=== PATIENT | female | born 1950 | race Caucasian/White ===

== ENCOUNTER → 2018-04-25 07:24 | Outpatient (CLI) | payer OTHER, SELFPAY ==
--- NOTE | 2018-04-25 07:30 | BI_ITS ---
MAMMOGRAPHY - BILATERAL SCREENING REASON FOR EXAM: Female, 67 years old. Routine annual screening examination. PERTINENT HISTORY: Non-contributory. TECHNIQUE: Digital bilateral breast chrissie (3D mammographic acquisition) in the CC and MLO projections. 2-D mediolateral oblique (MLO) and craniocaudad (CC) views of both breasts were obtained. CAD: Full Field Digital Mammography with Computer Added Detection was performed. COMPARISON: Comparison is made with prior study dated March 25, 2017 and April 03, 2016. FINDINGS: Breast Composition: There are scattered areas of fibroglandular density. There are no dominant masses or suspicious calcifications. No other significant abnormalities are identified. There has been no significant change since the prior study. BI/SCREENING MAMM (CAD), BILAT IMPRESSION: Stable bilateral screening mammogram. Yearly follow-up mammogram recommended. (A) ASSESSMENT CATEGORY: BIRADS Category 1: Negative. A letter regarding these results will be sent to the patient by the facility within 30 days. Approximately 10% of breast cancers are not detected by mammography. A normal mammogram should not delay biopsy of a clinically suspicious abnormality. [id number] Electronically Signed: Kush Boykin MD at 15:41 EDT Tel [phone], Service support ,
== END ==
PROVIDERS: Family Provider Family Medicine; PCP Family Medicine; Visit Provider Family Medicine
DX: Z12.31 Encounter for screening mammogram for malignant neoplasm of breast (principal)
CPT/HCPCS: 77063; 77067

== ENCOUNTER → 2019-04-26 06:53 | Outpatient (CLI) | payer OTHER, SELFPAY ==
--- NOTE | 2019-04-26 06:56 | BI_ITS ---
MAMMOGRAPHY - BILATERAL SCREENING REASON FOR EXAM: Female, 68 years old. Routine annual screening examination. PERTINENT HISTORY: Non-contributory. TECHNIQUE: Digital bilateral breast carli (3D mammographic acquisition) in the CC and MLO projections. 2-D mediolateral oblique (MLO) and craniocaudad (CC) views of both breasts were obtained. CAD: Full Field Digital Mammography with Computer Added Detection was performed. COMPARISON: Comparison is made with prior study date April 25, 2018 and March 25, 2017. FINDINGS: Breast Composition: There are scattered areas of fibroglandular density. There are no dominant masses or suspicious calcifications. No other significant abnormalities are identified. There has been no significant change since the prior study. BI/SCREEN MAMM (CAD) W/CARLI BILAT IMPRESSION: Stable bilateral screening mammogram. Yearly follow-up mammogram recommended. (A) ASSESSMENT CATEGORY: BIRADS Category 1: Negative. A letter regarding these results will be sent to the patient by the facility within 30 days. Approximately 10% of breast cancers are not detected by mammography. A normal mammogram should not delay biopsy of a clinically suspicious abnormality. [id number] Electronically Signed: Kush Boykin, at 8:54 EDT , Service support ,
== END ==
PROVIDERS: Family Provider Family Medicine; PCP Family Medicine; Referring Provider Family Medicine; Visit Provider Family Medicine
DX: Z12.31 Encounter for screening mammogram for malignant neoplasm of breast (principal)
CPT/HCPCS: 77063; 77067

== ENCOUNTER → 2019-08-22 13:17 | Outpatient (CLI) | payer OTHER, SELFPAY ==
--- NOTE | 2019-08-22 13:32 | STEWCON_ITS ---
Reason For Study: CHEST PAIN Stress Results Protocol: Stress Echocardiogram Maximum Predicted HR: 149 bpm Target HR: 127 bpm % Maximum Predicted HR: 88 % DurationHeart Rate Stage (mm:ss) (bpm) BP Comment BASELINE 60 120/80DILUTED DEFINITY 4 CC USED SYLWIA PROTOCOL- STAGE 1 3:00 97 122/68NO SX SYLWIA PROTOCOL- STAGE 2 3:00 114 128/78NO SX SYLWIA PROTOCOL- STAGE 3 3:00 131 138/78FATIGUE, NO CP RECOVERY 77 124/84 Stress Duration: 9:00 mm:ss Maximum Stress HR: 131 bpm METS: 10 Baseline Echocardiogram Findings Stress Echo Wall motion Data Resting WM Intermediate WM Stress WM Resting Wall Motion Wall Motion Stress All segments Normal. All segments Hyperkinetic. Ejection Fraction 55 %. Ejection Fraction 65 %. Stress Results Heart rate response: Appropriate Blood pressure response: Normal resting blood pressure-appropriate response Arrhythmias: None Functional capacity: Good Stopped secondary to: Fatigue. EKG Data Baseline ECG: Sinus bradycardia. Exercise ECG: No obvious ECG changes. Symptoms with Stress No complaint of chest discomfort during exercise or recovery. Interpretation Summary 1. Technically difficult study 2. Contrast injection performed 3. Negative (adequate) stress echocardiogram Ordering Physician: Jesus Rocha Referring Physician: Jesus Rocha Performed By: Glenda Schroeder, JONGCS, RVT
== END ==
PROVIDERS: PCP Family Medicine; Referring Provider Family Medicine; Visit Provider Family Medicine
DX: R07.89 Other chest pain (principal)
CPT/HCPCS: 93017; 93350; Q9957; A4216; C8928

== ENCOUNTER → 2020-08-23 09:46 | Outpatient (CLI) | payer MEDICARE, OTHER, SELFPAY ==
--- NOTE | 2020-08-23 09:48 | BI_ITS ---
MAMMOGRAPHY - BILATERAL SCREENING REASON FOR EXAM: Female, 70 years old. Routine annual screening examination. PERTINENT HISTORY: Non-contributory. TECHNIQUE: Digital bilateral breast carli (3D mammographic acquisition) in the CC and MLO projections. 2-D mediolateral oblique (MLO) and craniocaudad (CC) views of both breasts were obtained. CAD: Full Field Digital Mammography with Computer Added Detection was performed. COMPARISON: Comparison is made with prior study dated 04/26/2019 and 04/25/2018. FINDINGS: Breast Composition: There are scattered areas of fibroglandular density. There are no dominant masses or suspicious calcifications. No other significant abnormalities are identified. There has been no significant change since the prior study. BI/SCRN MAMM (CAD)W/CARLI BILAT IMPRESSION: Stable bilateral screening mammogram. Yearly follow-up mammogram recommended. (A) ASSESSMENT CATEGORY: BIRADS Category 1: Negative. A letter regarding these results will be sent to the patient by the facility within 30 days. Approximately 10% of breast cancers are not detected by mammography. A normal mammogram should not delay biopsy of a clinically suspicious abnormality. [id number] Electronically Signed: Kush Boykin MD at 11:46 EST , Service support ,
== END ==
PROVIDERS: PCP Family Medicine; Referring Provider Family Medicine; Visit Provider Family Medicine
DX: Z12.31 Encounter for screening mammogram for malignant neoplasm of breast (principal)
CPT/HCPCS: 77063; 77067

== ENCOUNTER 2020-09-05 10:51 | Outpatient (RCR) | payer MEDICARE, SELFPAY ==
[2020-09-05] MEDS: COVID-19 VACC, MRNA(PFIZER)/PF 30 MCG/0.3 ML SYRINGE IM (07:37)
[2020-09-26] MEDS: COVID-19 VACC, MRNA(PFIZER)/PF 30 MCG/0.3 ML SYRINGE IM (07:28)
== END 2020-09-05 23:59 ==
LOC: IMMUN 10:51
PROVIDERS: PCP Family Medicine; Visit Provider Family Medicine
DX: Z23 Encounter for immunization (principal)
CPT/HCPCS: 0001A; 0002A

== ENCOUNTER 2021-08-27 07:08 | Outpatient (CLI) | payer MEDICARE, OTHER, SELFPAY ==
--- NOTE | 2021-08-27 07:13 | BI_ITS ---
MAMMOGRAPHY - BILATERAL SCREENING REASON FOR EXAM: Female, 71 years old. Routine annual screening examination. PERTINENT HISTORY: Non-contributory. TECHNIQUE: Digital bilateral breast carli (3D mammographic acquisition) in the CC and MLO projections. 2-D mediolateral oblique (MLO) and craniocaudad (CC) views of both breasts were obtained. CAD: Full Field Digital Mammography with Computer Added Detection was performed. COMPARISON: Comparison is made with prior study dated 08/23/2020 and 04/26/2019. FINDINGS: Breast Composition: There are scattered areas of fibroglandular density. There are no dominant masses or suspicious calcifications. No other significant abnormalities are identified. There has been no significant change since the prior study. BI/SCRN MAMM (CAD)W/CARLI BILAT IMPRESSION: Stable bilateral screening mammogram. Yearly follow-up mammogram recommended. (A) ASSESSMENT CATEGORY: BIRADS Category 1: Negative. A letter regarding these results will be sent to the patient by the facility within 30 days. Approximately 10% of breast cancers are not detected by mammography. A normal mammogram should not delay biopsy of a clinically suspicious abnormality. [id number] Electronically Signed: Kush Boykin MD at 8:28 EST ,
== END 2021-08-27 23:59 | disposition home or self-care (01) ==
LOC: OPBI 07:10
PROVIDERS: PCP Family Medicine; Visit Provider Family Medicine
DX: Z12.31 Encounter for screening mammogram for malignant neoplasm of breast (principal)
CPT/HCPCS: 77063; 77067

== ENCOUNTER → 2022-09-01 | Outpatient (CLI) | payer MEDICARE, OTHER, SELFPAY ==
--- NOTE | 2022-09-01 07:09 | BI_ITS ---
MAMMOGRAPHY - BILATERAL SCREENING REASON FOR EXAM: Female, 72 years old. Routine annual screening examination. PERTINENT HISTORY: Sister with breast cancer. TECHNIQUE: Digital bilateral breast carli (3D mammographic acquisition) in the CC and MLO projections. 2-D mediolateral oblique (MLO) and craniocaudad (CC) views of both breasts were obtained. CAD: Full Field Digital Mammography with Computer Added Detection was performed. COMPARISON: Comparison is made with prior study dated 08/27/2021 and 08/23/2020. FINDINGS: Breast Composition: There are scattered areas of fibroglandular density. There are no dominant masses or suspicious calcifications. No other significant abnormalities are identified. There has been no significant change since the prior study. BI/SCRN MAMM (CAD)W/CARLI BILAT IMPRESSION: Stable bilateral screening mammogram. Yearly follow-up mammogram recommended. (A) ASSESSMENT CATEGORY: BIRADS Category 1: Negative. A letter regarding these results will be sent to the patient by the facility within 30 days. Approximately 10% of breast cancers are not detected by mammography. A normal mammogram should not delay biopsy of a clinically suspicious abnormality. [id number] Electronically Signed: Kush Boykin MD at 9:00 EST ,
== END | disposition home or self-care (01) ==
LOC: OPBI 07:05
PROVIDERS: PCP Family Medicine; Visit Provider Family Medicine
DX: Z12.31 Encounter for screening mammogram for malignant neoplasm of breast (principal)
CPT/HCPCS: 77063; 77067

== ENCOUNTER → 2023-03-03 | Outpatient (CLI) | payer MEDICARE, OTHER, SELFPAY ==
--- NOTE | 2023-03-03 09:24 | BD_ITS ---
STUDY: DUAL ENERGY X-RAY ABSORPTIOMETRY / DXA REASON FOR EXAM: Female, 72 years old. Z78.0 TECHNIQUE: Bone Mineral Density (BMD) measurements of lumbar spine and bilateral hips were obtained. COMPARISON: None. FINDINGS: Lumbar Spine (L1-L4): g/cm2 (0.868) / T-score (-1.5) / Z-score (0.8) Findings are suggestive of osteopenia with a low fracture risk. Left Femur Total: g/cm2 (0.847) / T-score (-0.8) / Z-score (1.0) Left Femoral Neck: g/cm2 (0.749) / T-score (-0.9) / Z-score (1.2) Right Femur Total: g/cm2 (0.890) / T-score (-0.4) / Z-score (1.3) Right Femoral Neck: g/cm2 (0.745) / T-score (-0.9) / Z-score (1.1) BD/Dexa Bone Density Study IMPRESSION: The patient is considered osteopenic as outlined below according to World Keyur Organization (WHO) criteria with a moderate fracture risk. Reference Information: The T-score is the number of standard deviations above or below the standard which is normal for young adults at their peak bone mineral density. The World Health Organization (WHO) interprets the T-scores as follows: Above -1 Normal bone density Between -1 and -2.5 Osteopenia Equal to / or below -2.5 Osteoporosis As a practical clinical guideline, osteopenia may be graded as follows: Mild -1 through -1.5 Moderate -1.6 through -2.0 Severe -2.1 through -2.4 The Z-score is the number of standard deviations above or below age-matched controls. A Z-score of less than -1.5 would be considered abnormal. References: 1. NIH Osteoporosis and Related Bone Diseases www osteo.org 2. International Society for Clinical Densitometry www iscd.org 3. National Osteoporosis Foundation www nof.org Electronically Signed: Kush Boykin MD at 13:35 EDT ,
== END | disposition home or self-care (01) ==
LOC: OPBD 09:17
PROVIDERS: PCP Family Medicine; Referring Provider Family Medicine; Visit Provider Family Medicine
DX: Z78.0 Asymptomatic menopausal state (principal)
CPT/HCPCS: 77080

== ENCOUNTER → 2023-09-02 | Outpatient (CLI) | payer MEDICARE, OTHER, SELFPAY ==
--- NOTE | 2023-09-02 07:04 | BI_ITS ---
MAMMOGRAPHY - BILATERAL SCREENING REASON FOR EXAM: Female, 73 years old. Routine annual screening examination. PERTINENT HISTORY: Sister with breast cancer. TECHNIQUE: Digital bilateral breast carli (3D mammographic acquisition) in the CC and MLO projections. 2-D mediolateral oblique (MLO) and craniocaudad (CC) views of both breasts were obtained. CAD: Full Field Digital Mammography with Computer Added Detection was performed. COMPARISON: Comparison is made with prior study dated August 24, 2022 and August 27, 2021. FINDINGS: Breast Composition: There are scattered areas of fibroglandular density. There are no dominant masses or suspicious calcifications. No other significant abnormalities are identified. There has been no significant change since the prior study. BI/SCRN MAMM (CAD)W/CARLI BILAT IMPRESSION: Stable bilateral screening mammogram. Yearly follow-up mammogram recommended. (A) ASSESSMENT CATEGORY: BIRADS Category 1: Negative. A letter regarding these results will be sent to the patient by the facility within 30 days. Approximately 10% of breast cancers are not detected by mammography. A normal mammogram should not delay biopsy of a clinically suspicious abnormality. [id number] Electronically Signed: Kush Boykin MD at 8:43 EST ,
--- OUTSIDE RECORDS SUMMARY | 2023-09-02 07:13 | XMS RPT_ITS | CCD ---
Author Name Unknown Address [facility] [place] [address] Organization [facility] Care Team Providers Care Oil Transport Driver Name Role Phone Meme Rocha MD Primary Care Provider NAIMA ALANIS Attending Unavailable MEME ROCHA Primary Care Unavailable MEME ROCHA Attending Unavailable MEME ROCHA Primary Care Unavailable MEME ROCHA Attending Unavailable MEME ROCHA Primary Care Unavailable MEME ROCHA Primary Care Unavailable Medications Current Medications Medication Drug Class(es) Dates Sig (Normalized) Sig (Original) Calcium Carbonate-Vit D-Min (CALTRATE 600+D PLUS PO) (7 sources) Calcium Carbonate-Vit D-Min (CALTRATE 600+D PLUS PO) Take by mouth. 0 Active chondroitin sulfates 200 mg / glucosamine 250 mg oral tablet (7 sources) Glucosamine-Chetan dr oitin 250-200 MG tablet Take 250 mg by mouth. 0 Active clobetasol propionate 0.0005 mg/mg topical ointment (7 sources) Corticosteroid Start: 2022 clobetasol (Temovate) 0.05 % ointment Apply topically 2 times daily. 30 g 1 2022 Active famotidine 40 mg oral tablet (8 sources) Histamine-2 Receptor Antagonist Start: 08-24-2021 End: 01-27-2023 take 1 tablet by mouth once daily famotidine (Pepcid) 40 MG tablet Take 1 tablet (40 mg) by mouth daily. 90 tablet 1 01/27/2023 Active pantoprazole 40 mg delayed release oral tablet (8 sources) Proton Pump Inhibitor Start: 10-30-2021 End: 01-27-2023 take 1 tablet by mouth once daily before breakfast pantoprazole (ProtoNix) 40 MG EC tablet Take 1 tablet (40 mg) by mouth every morning (before breakfast). 90 tablet 1 01/27/2023 Active rosuvastatin calcium 5 mg oral tablet (8 sources) HMG-CoA Reductase Inhibitor Start: 07-08-2023 take 1 tablet by mouth once daily in the morning rosuvastatin (Crestor) 5 MG tablet Take 1 tablet (5 mg) by mouth every morning. 90 tablet 1 07/08/2023 Active Completed/Discontinued Medications Medication Drug Class(es) Dates Sig (Normalized) Sig (Original) latanoprost 0.05 mg/ml ophthalmic solution (5 sources) Prostaglandin Analog Start: 11-16-2022 End: 08-04-2023 latanoprost (Xalatan) 0.005 % ophthalmic solution naproxen 375 mg oral tablet (5 sources) Nonsteroidal Anti-inflammatory Drug Start: 12-25-2022 End: 08-04-2023 take 1 tablet by mouth in the morning naproxen (Naprosyn) 375 MG tablet Indications: Acute right-sided low back pain without sciatica Take 1 tablet (375 mg) by mouth in the morning and 1 tablet (375 mg) in the evening. Take with meals. 30 tablet 0 12/25/2022 08/04/2023 Discontinued ofloxacin 3 mg/ml ophthalmic solution (5 sources) Quinolone Antimicrobial Start: 12-21-2022 End: 08-04-2023 take 1 drop(s) into the eye(s) four times daily ofloxacin (Ocuflox) 0.3 % ophthalmic solution instill 1 drop IN OPERATIVE EYE four times a day STARTING 3 DAYS PRIOR TO SURGERY 0 12/21/2022 08/04/2023 Discontinued prednisoLONE acetate 10 mg/ml ophthalmic suspension (1 source) Corticosteroid Start: 01-12-2023 End: 01-27-2023 take 1 drop(s) into the eye(s) twice daily prednisoLONE acetate (Pred-Forte) 1 % ophthalmic suspension instill 1 drop into left eye twice a day for 7 days as directed 0 01/12/2023 01/27/2023 Discontinued timolol 2.5 mg/ml ophthalmic solution (5 sources) beta-Adrenergic Yoli Start: 12-24-2022 End: 08-04-2023 timolol (Timoptic) 0.25 % ophthalmic solution tiZANidine 2 mg oral tablet (2 sources) Central alpha-2 Adrenergic Agonist Start: 12-25-2022 End: 01-27-2023 take 1 tablet by mouth every eight hours as needed for muscle spasms tiZANidine (Zanaflex) 2 MG tablet Indications: Acute right-sided low back pain without sciatica Take 1 tablet (2 mg) by mouth every 8 hours as needed for muscle spasms for up to 10 days. 30 tablet 0 12/25/2022 01/27/2023 Discontinued Problems Active Problems Problem Classification Problem Date Documented Date Episodic/Chronic Disorders of lipid metabolism (11 sources) Hyperlipidemia; Translations: [Hyperlipidemia, unspecified] Onset: 05-15-2016 04-18-2022 Chronic Esophageal disorders (11 sources) Gastroesophageal reflux disease; Translations: [Gastro-esophageal reflux disease without esophagitis] Onset: 10-02-2019 04-18-2022 Chronic Menopausal disorders (7 sources) Atrophic vaginitis; Translations: [Postmenopausal atrophic vaginitis] Onset: 12-28-2014 04-18-2022 Chronic Osteoarthritis (12 sources) Osteoarthritis; Translations: [Osteoarthrosis involving lower leg] Onset: 12-08-2015 Resolved: 08-04-2023 04-18-2022 Chronic Other circulatory disease (3 sources) Elevated blood-pressure reading without diagnosis of hypertension; Translations: [Elevated blood-pressure reading, without diagnosis of hypertension] Onset: 08-04-2023 08-04-2023 Episodic Other circulatory disease (2 sources) Elevated blood-pressure reading, without diagnosis of hypertension; Translations: [Elevated blood-pressure reading, without diagnosis of hypertension] Onset: 08-04-2023 Episodic Other screening for suspected conditions (not mental disorders or infectious disease) (6 sources) Patient encounter status; Translations: [Encounter for screening for diabetes mellitus] Onset: 08-04-2023 08-04-2023 Episodic Other upper respiratory disease (7 sources) Allergic rhinitis; Translations: [Allergic rhinitis, unspecified] Onset: 04-01-2018 04-18-2022 Chronic Unclassified (2 sources) Blood Pressure Check; Translations: [Blood Pressure Check] Onset: 08-12-2023 Unclassified (1 source) Low back pain, unspecified; Translations: [Low back pain, unspecified] Onset: 12-25-2022 Past or Other Problems Problem Classification Problem Date Documented Da te Episodic/Chronic Chronic obstructive pulmonary disease and bronchiectasis (7 sources) Bronchitis; Translations: [Bronchitis, not specified as acute or chronic] Onset: 02-21-2021 Resolved: 2022 2022 Episodic Other connective tissue disease (7 sources) Plantar fasciitis of left foot; Translations: [Plantar fascial fibromatosis] Onset: 01-21-2022 04-18-2022 Episodic Residual codes; unclassified (6 sources) Menopause present; Translations: [Asymptomatic menopausal state] Onset: 01-27-2023 01-27-2023 Episodic Residual codes; unclassified (2 sources) Asymptomatic menopausal state; Translations: [Asymptomatic menopausal state] Onset: 01-27-2023 Episodic Spondylosis; intervertebral disc disorders; other back problems (7 sources) Acute low back pain; Translations: [Acute right-sided low back pain without sciatica] Onset: 12-25-2022 Resolved: 01-27-2023 12-25-2022 Episodic Unclassified (1 source) Low back pain, unspecified; Translations: [Low back pain, unspecified] Onset: 12-25-2022 Results Test Name Value Interpretation Reference Range Facil ity Vital Signs Date Time Vital Sign Value Performing Clinician Faci lity 08-04-2023 07:22-0500 Diastolic blood pressure 80 mm[Hg] Meme Rocha MD Work Phone: [facility] 08-04-2023 07:22-0500 Heart rate 62 /min Meme Rocha MD Work Phone: [facility] 08-04-2023 07:22-0500 Systolic blood pressure 155 mm[Hg] Meme Rodriguez Work Phone: [facility] 08-04-2023 06:55-0500 Body height 162.6 cm Meme Rocha MD Work Phone: [facility] 08-04-2023 06:55-0500 Body mass index (BMI) [Ratio] 26.78 kg/m2 Meme Rocha MD Work Phone: [facility] 08-04-2023 06:55-0500 Body weight 70.76 kg Meme Rocha MD Work Phone: [facility] 08-04-2023 06:55-0500 SaO2% (BldA) [Mass fraction] 95 % Meme Rocha MD Work Phone: [email or web address] 01-27-2023 07:30-0400 Body height 162.6 cm Meme Rocha MD Work Phone: [email or web address] 01-27-2023 07:30-0400 Body mass index (BMI) [Ratio] 26.57 kg/m2 Meme Rocha MD Work Phone: [email or web address] 01-27-2023 07:30-0400 Body weight 70.22 kg Meme Rocha MD Work Phone: [email or web address] 01-27-2023 07:30-0400 Diastolic blood pressure 72 mm[Hg] Meme Rocha MD Work Phone: [email or web address] 01-27-2023 07:30-0400 Heart rate 54 /min Meme Rocha MD Work Phone: [email or web address] 01-27-2023 07:30-0400 SaO2% (BldA) [Mass fraction] 96 % Meme Rocha MD Work Phone: [email or web address] 01-27-2023 07:30-0400 Systolic blood pressure 115 mm[Hg] Meme Rodriguez Work Phone: [email or web address] 12-25-2022 14:57-0400 Body height 162.6 cm Naima Alanis CUTTING TORCH OPERATOR - EMPLOYMENT AGENCY MANAGER Work Phone: [email or web address] 12-25-2022 14:57-0400 Body mass index (BMI) [Ratio] 27.12 kg/m2 Naima Alanis CUTTING TORCH OPERATOR - EMPLOYMENT AGENCY MANAGER Work Phone: [email or web address] 12-25-2022 14:57-0400 Body temperature 98.4 [degF] Naima Alanis CUTTING TORCH OPERATOR - EMPLOYMENT AGENCY MANAGER Work Phone: [email or web address] 12-25-2022 14:57-0400 Body weight 71.67 kg Naima Alanis CUTTING TORCH OPERATOR - EMPLOYMENT AGENCY MANAGER Work Phone: [email or web address] 12-25-2022 14:57-0400 Diastolic blood pressure 70 mm[Hg] Naima Alanis CUTTING TORCH OPERATOR - EMPLOYMENT AGENCY MANAGER Work Phone: [email or web address] 12-25-2022 14:57-0400 Heart rate 64 /min Naimamilena Alanis CUTTING TORCH OPERATOR - EMPLOYMENT AGENCY MANAGER Work Phone: [email or web address] 12-25-2022 14:57-0400 SaO2% (BldA) [Mass fraction] 98 % Naima Zeke CUTTING TORCH OPERATOR - EMPLOYMENT AGENCY MANAGER Work Phone: [email or web address] 12-25-2022 14:57-0400 Systolic blood pressure 118 mm[Hg] Naimamilena Alanis CUTTING TORCH OPERATOR - EMPLOYMENT AGENCY MANAGER Work Phone: [facility] Encounters Encounter Date Encounter Type Care Provider Facility Start: 08-17-2023 Telephone encounter Meme Stout MD Work Phone: [facility] Procedures Date Procedure Procedure Detail Performing Clinician Start: 08-04-2023 Adult depression scr eening assessment Meme Rocha MD Work Phone: Start: 09-01-2022 Mammography Meme pineda MD Work Phone: Start: 07-28-2022 Adult depression scr eening assessment Naima Alanis CUTTING TORCH OPERATOR - EMPLOYMENT AGENCY MANAGER Work Phone: Start: 09-18-2021 Mammography Meme pineda MD Work Phone: Start: 06-27-2019 Colonoscopy Meme pineda MD Work Phone: Plan of Treatment Date Care Activity Detail Author Start: 06-27-2029 Screening for malignant neoplasm of colon [email or web address] Start: 03-25-2027 DTaP/Tdap/Td Vaccines (2 - Td or Tdap) DTaP/Tdap/Td Vaccines (2 - Td or Tdap) [email or web address] Start: 09-03-2024 Medicare Annual Wellness (AWV) Medicare Annual Wellness (AWV) [email or web address] Start: 08-07-2024 End: 08-07-2024 Patient encounter procedure 08/07/2024 7:00 AM EST Office Visit [facility] [address] [place], [place] [address] [address] Meme Rocha MD [address] [place], [place] [address] [address] [facility] Start: 08-04-2024 Depression Screening Depression Screening [facility] Start: 02-02-2024 End: 02-02-2024 Patient encounter procedure 02/02/2024 8:45 AM EDT Office [place] [address] [place] [address] Meme Rocha MD [address] [place] [id number] [facility] Start: 09-01-2023 Screening for malignant neoplasm of breast Mammogram [facility] Start: 08-28-2023 Medicare Annual Wellness (AWV) Medicare Annual Wellness (AWV) [facility] Start: 08-12-2023 End: 08-12-2023 Clinical Support 08/12/2023 7:30 AM EST Clinical Support [address] [place] [address] [facility] Start: 08-04-2023 End: 08-03-2024 Comprehensive metabolic 1998 panel - Serum or Plasma Comprehensive metabolic panel Lab Routine Screening for diabetes mellitus Expected: 08/04/2023 (Approximate), Expires: 08/03/2024 [facility] Immunizations Immunization Date Immunization Notes Care Provider Fa cili 04-14-2023 Influenza, Seasonal, Quadrivalent, Adjuvanted Meme Rocha MD Work Phone: [facility] 04-18-2022 influenza virus vacc ine, unspecified formulation Meme Rocha MD Work Phone: [facility] 06-25-2021 Pfizer SARS-CoV-2 Vaccination Meme Rocha MD Work Phone: [facility] 04-28-2021 influenza, high dose seasonal, preservative-free Meme Rocha MD Work Phone: [facility] 04-28-2021 Influenza, Seasonal, Quadrivalent, Adjuvanted Meme Rocha MD Work Phone: [facility] 04-06-2020 influenza virus vacc ine, unspecified formulation Meme Rocha MD Work Phone: [facility] 03-26-2020 influenza, injectabl e, quadrivalent, preservative free Meme Rocha MD Work Phone: [facility] 04-06-2019 influenza virus vacc ine, unspecified formulation Meme Rocha MD Work Phone: [facility] 09-29-2018 zoster vaccine recombinant D hermelindo Rocha MD Work Phone: [facility] 04-13-2018 influenza virus vacc ine, unspecified formulation Meme Rocha MD Work Phone: [facility] 04-01-2018 pneumococcal polysac charide vaccine, 23 valent Meme Rocha MD Work Phone: [facility] 04-01-2018 zoster vaccine recombinant Jennifer Rocha MD Work Phone: [facility] 03-25-2017 tetanus toxoid, redu senia diphtheria toxoid, and acellular pertussis vaccine, adsorbed Meme Rocha MD Work Phone: [facility] 04-03-2016 pneumococcal conjuga te vaccine, 13 valent Meme Rocha MD Work Phone: [facility] 04-17-2015 zoster vaccine, live Meme Rocha MD Work Phone: [facility] 04-02-2014 pneumococcal polysac charide vaccine, 23 valent Meme Rocha MD Work Phone: [facility] 03-28-2014 pneumococcal conjuga te vaccine, 13 valent Meme Rocha MD Work Phone: [facility] Payers Date Payer Category Payer Unknown [facility] [id number] 2020-Present [address] [place] [id number] Commercial [id number] 2020 Unknown [id number] 2019 Medicare MEDICARE MEDICAR E PART A AND B [id number] 2019-Present [address] [place] [address] Medicare [id number] 2019 Medicare [id number] Social History Date Type Detail Facility Tobacco smoking status NHIS Never smoked tobacco [facility] Start: 2022 End: 08-04-2023 Alcohol intake Current non-drinker of alcohol (finding) [facility] Start: 07-28-2022 History SDOH Alcohol Std Drinks 0 [facility] Start: 07-28-2022 History SDOH Financial 5 [facility] Start: 07-28-2022 History SDOH Food Worry 1 [facility] Start: 07-28-2022 History SDOH Transport Med 2 [facility] Start: 1950 Sex Assigned At Not on file [facility] Start: 07-28-2022 End: 08-03-2023 History of Social function [facility] Start: 07-28-2022 End: 08-03-2023 Alcohol Use Disorder Identification Test - Consumption [AUDIT-C] [facility] Frequency of Alcohol Consumption Not on file [facility] (I/We) worried wheth er (my/our) food would run out before (I/we) got money to buy more. Never true [facility] Start: 12-15-2022 End: 01-27-2023 Exposure to SARS-CoV-2 (event) Not sure [facility] How often to you hav e a drink containing alcohol? Never [facility] In the past 12 month s, was there a time when you were not able to pay the mortgage or rent on time? No [facility] Clinical Notes 10-21-2022 to 08-17-2023 Telephone Encounter - Rey Masters - 08/17/2023 11:29 AM ESTTelephone Encounter - Rey Masters - 08/17/2023 11:29 AM ESTAssessment & Plan Note - Meme Rocha MD - 08/04/2023 7:27 AM EST Note Date & Type Note Facility 08-17-2023 Telephone encounter Note Form atting of this note might be different from the original. Name of caller: Celena Contact phone number: [phone] Relationship to Patient: [facility] Provider: Josefina Practice: [facility] Chief Complaint/Reason for Call: Celena from Scheduling at [facility] needs order for screening mammogram faxed to [phone] I faxed to her closing TE Best time of day caller can be reached: Patient advised that office/PCP has 24-48 business hours to return their call: [facility] 08-17-2023 Miscellaneous Notes Formattin g of this note might be different from the original. Name of caller: Celena Contact phone number: [phone] Relationship to Patient: [facility] Provider: Josefina Practice: [facility] Chief Complaint/Reason for Call: Celena from Scheduling at [facility] needs order for screening mammogram faxed to [phone] I faxed to her closing TE Best time of day caller can be reached: Patient advised that office/PCP has 24-48 business hours to return their call: documented in this encounter [facility] 08-04-2023 Evaluation + Plan note Associ ated Problem(s): Elevated BP without diagnosis of hypertension Blood pressure was initially elevated, recheck was still elevated, follow-up in 1 week for blood pressure check [facility] 08-04-2023 Miscellaneous Notes Associate d Problem(s): Elevated BP without diagnosis of hypertension Blood pressure was initially elevated, recheck was still elevated, follow-up in 1 week for blood pressure check Associated Problem(s): Hyperlipidemia Controlled, continue rosuvastatin 40 mg daily Associated Problem(s): Osteoarthritis of left knee Stable, pain comes and goes she is using topical to treat arthritis. Associated Problem(s): GERD (gastroesophageal reflux disease) Controlled, continue Pepcid 40 mg and Protonix 40 mg daily documented in this encounter [facility] 08-04-2023 Evaluation + Plan note Associ ated Problem(s): Hyperlipidemia Controlled, continue rosuvastatin 40 mg daily [facility] 08-04-2023 Evaluation + Plan note Associ ated Problem(s): Osteoarthritis of left knee Stable, pain comes and goes she is using topical to treat arthritis. [facility] 08-04-2023 Evaluation + Plan note Associ ated Problem(s): GERD (gastroesophageal reflux disease) Controlled, continue Pepcid 40 mg and Protonix 40 mg daily [facility] 08-04-2023 History of Presen t illness Narrative Patient verified by last name and date of . Images from the original note were not included. [facility] [address] [facility] [id number] Visit type: Established Patient Reason for Visit: Medicare Annual Wellness Visit Subsequent, Blood Work, and Health Maintenance (Hep c screening- refused/Rsv vaccine- not done) Assessment and Plan Problem List Items Addressed This Visit Circulatory Elevated BP without diagnosis of hypertension Blood pressure was initially elevated, recheck was still elevated, follow-up in 1 week for blood pressure check Digestive GERD (gastroesophageal reflux disease) Controlled, continue Pepcid 40 mg and Protonix 40 mg daily Musculoskeletal Osteoarthritis of left knee Stable, pain comes and goes she is using topical to treat arthritis. Other Hyperlipidemia Controlled, continue rosuvastatin 40 mg daily Relevant Orders Lipid panel Other Visit Diagnoses Medicare annual wellness visit, subsequent - Primary Screening for diabetes mellitus Relevant Orders Comprehensive metabolic panel Encounter for screening mammogram for malignant neoplasm of breast Relevant Orders Bilateral screening mammogram with tomosynthesis Follow up in about 6 months (around 02/02/2024). Subjective NEERAJ Llanos comes in today for her annual Medicare well visit, she says that yesterday her knee was bothering her but today is doing very well. Completely pain-free She denies any other complaints at this time, her GERD and her hyperlipidemia seem to be well-controlled. Blood pressure is slightly elevated today we will recheck that prior to discharge. I have reviewed and reconciled the medication list with the patient today. Current Outpatient Medications Medication Sig Dispense Refill Calcium Carbonate-Vit D-Min (CALTRATE 600+D PLUS PO) Take by mouth. clobetasol (Temovate) 0.05 % ointment Apply topically 2 times daily. 30 g 1 famotidine (Pepcid) 40 MG tablet Take 1 tablet (40 mg) by mouth daily. 90 tablet 1 Glucosamine-Chondroitin 250-200 MG tablet Take 250 mg by mouth. pantoprazole (ProtoNix) 40 MG EC tablet Take 1 tablet (40 mg) by mouth every morning (before breakfast). 90 tablet 1 rosuvastatin (Crestor) 5 MG tablet Take 1 tablet (5 mg) by mouth every morning. 90 tablet 1 No current facility-administered medications for this visit. Medications Discontinued During This Encounter Medication Reason latanoprost (Xalatan) 0.005 % ophthalmic solution naproxen (Naprosyn) 375 MG tablet ofloxacin (Ocuflox) 0.3 % ophthalmic solution timolol (Timoptic) 0.25 % ophthalmic solution List of current healthcare providers: Patient Care Team: Meme Rocha MD as PCP - General The following health maintenance schedule was reviewed with the patient and provided in printed form in the after visit summary: Health Maintenance Topic Date Due Medicare Annual Wellness (AWV) Never done Bone Density Scan Never done Hepatitis C Screening Never done Diabetes Screening Never done RSV Immunization aged 60 or older (1 - 1-dose 60+ series) Never done Depression Screening 08/03/2024 DTaP/Tdap/Td Vaccines (2 - Td or Tdap) 03/25/2027 Colorectal Cancer Screening 06/27/2029 Influenza Vaccine Completed Pneumococcal Vaccine: 65+ Years Completed Zoster Vaccines Completed RSV Immunization under 20 Months Aged Out HIB Vaccines Aged Out Hepatitis B Vaccines Aged Out IPV Vaccines Aged Out Hepatitis A Vaccines Aged Out Meningococcal Vaccine Aged Out Rotavirus Vaccines Aged Out HPV Vaccines Aged Out COVID-19 Vaccine Discontinued Orders Placed This Encounter Procedures Bilateral screening mammogram with tomosynthesis Standing Status: Future Standing Expiration Date: 10/02/2024 Lipid panel Standing Status: Future Number of Occurrences: 1 Standing Expiration Date: 08/03/2024 Comprehensive metabolic panel Standing Status: Future Number of Occurrences: 1 Standing Expiration Date: 08/03/2024 Health Risk Assessment: General In general, how would you say your health is?: Very good In the past 7 days, have you experienced any of the following: New or Increased Pain, New or Increased Fatigue, Loneliness, Social Isolation, Stress or Anger?: (!) Yes Select all that apply: (!) New or Increased Pain Do you get the social and emotional suppport you need?: Yes Interventions: Pain Issues: knee pain resolved Health Habits / Nutrition On average, how many days per week do you engage in moderate to strenous exercise (like a brisk walk)?: 7 days On average, how man minutes do you engage in exercise at this level?: (tries to get 00250 steps per day) Have you lost any weight without trying in the past 3 months? : No Have you seen the dentist within the past year?: Yes Interventions: Hearing / Vision Do you or your family notice any trouble with your hearing that hasn't been managed with hearing aids?: No Do you have difficulty driving, watching TV, or doing any of your daily activities because of your eyesight?: No Have you had an eye exam within the past year?: Yes No results found. Interventions: Safety Do you have a working smoke detector?: Yes Do you have any tripping hazards - loose or unsecured carpets or rugs?: (!) Yes Do you have any tripping hazards - clutter in doorways, halls, or stairs?: No Do you have either shower bars, grab bars, non-slip mats or non-slip surfaces in your shower or bathtub? : Yes Do all your stairways have a railing or banister? : Yes Do you fasten your seatbelt when you are in a car?: Yes Interventions: Home safety tips provided ADL In the past 7 days, did you need help from others to perform any of the following everyday activities: Eating, dressing, grooming,bathing, toileting, or walking / balance? : No In the past 7 days, did you need help from others to take care of any of the following: laundry, housekeeping, banking / finances,shopping, telephone use, food preparation, transportation, or taking medications? : No Interventions: Living Will Do you have a living will?: Yes Interventions: Cognitive: Cognitive Screening: Mini-Cog Clock Drawing Test (CDT): 2 Words Recalled: 3 Total Score: 5 Total Score Interpretation: Normal Mini-Cog Interventions: Fall Risk: Interventions: No falls Depression Screening: Over the past 2 weeks, how often have you been bothered by any of the following problems? Little interest or pleasure in doing things: Not at all Feeling down, depressed, or hopeless: Not at all Patient Health Questionnaire-2 Score: 0 Interventions: Tobacco Use: Social History Tobacco Use Smoking Status Never Smokeless Tobacco Never Interventions: Alcohol Use: Audit Alcohol Screening Q2: How many drinks containing alcohol do you have on a typical day when you are drinking?: Patient does not drink Interventions: Drug Use: Drug Abuse Screening Test (DAST-10) Have you used drugs other than those required for medical reasons?: No Interventions: Review of Systems Constitutional: Negative for chills and fever. Respiratory: Negative for shortness of breath. Cardiovascular: Negative for chest pain and palpitations. Gastrointestinal: Negative for abdominal pain, blood in stool, constipation and diarrhea. Genitourinary: Negative for dyspareunia, dysuria, frequency, hematuria and urgency. Neurological: Negative for weakness and numbness. Psychiatric/Behavioral: Negative for dysphoric mood. The patient is not nervous/anxious. Immunization History Administered Date(s) Administered Influenza, High Dose Seasonal, Preservative Free 04/28/2021 Influenza, Seasonal, Quadrivalent, Adjuvanted 04/28/2021, 04/14/2023 Influenza, Unspecified 04/13/2018, 04/06/2019, 04/06/2020, 04/18/2022 Influenza, injectable, quadrivalent, preservative free 03/26/2020 Pfizer SARS-CoV-2 Vaccination 09/05/2020, 09/26/2020, 06/25/2021 Pneumococcal Conjugate PCV 13 03/28/2014, 04/03/2016 Pneumococcal Polysaccharide PPSV23 04/02/2014, 04/01/2018 Tdap 03/25/2017 Zoster, Recombinant 04/01/2018, 09/29/2018 Zoster, live 04/17/2015 No Known Allergies Outpatient Medications Prior to Visit Medication Sig Dispense Refill Calcium Carbonate-Vit D-Min (CALTRATE 600+D PLUS PO) Take by mouth. clobetasol (Temovate) 0.05 % ointment Apply topically 2 times daily. 30 g 1 famotidine (Pepcid) 40 MG tablet Take 1 tablet (40 mg) by mouth daily. 90 tablet 1 Glucosamine-Chondroitin 250-200 MG tablet Take 250 mg by mouth. pantoprazole (ProtoNix) 40 MG EC tablet Take 1 tablet (40 mg) by mouth every morning (before breakfast). 90 tablet 1 rosuvastatin (Crestor) 5 MG tablet Take 1 tablet (5 mg) by mouth every morning. 90 tablet 1 latanoprost (Xalatan) 0.005 % ophthalmic solution naproxen (Naprosyn) 375 MG tablet Take 1 tablet (375 mg) by mouth in the morning and 1 tablet (375 mg) in the evening. Take with meals. (Patient not taking: Reported on 08/03/2023) 30 tablet 0 ofloxacin (Ocuflox) 0.3 % ophthalmic solution instill 1 drop IN OPERATIVE EYE four times a day STARTING 3 DAYS PRIOR TO SURGERY timolol (Timoptic) 0.25 % ophthalmic solution No facility-administered medications prior to visit. Past Medical History: Diagnosis Date Contact dermatitis and other eczema, due to unspecified cause 03/24/2013 GERD (gastroesophageal reflux disease) Impacted cerumen 02/29/2012 Osteoarthrosis, unspecified whether generalized or localized, lower leg 05/23/2013 Other and unspecified hyperlipidemia 05/04/2014 Plantar fasciitis of right foot 09/02/2016 Postmenopausal atrophic vaginitis 03/24/2013 Rotator cuff tendonitis 09/02/2016 Spasm of muscle 01/17/2013 Social History Socioeconomic History Marital status: Tobacco Use Smoking status: Never Smokeless tobacco: Never Vaping Use Vaping Use: Never used Substance and Sexual Activity Alcohol use: No Drug use: No Sexual activity: Yes Partners: Male Social Determinants of Health Financial Resource Strain: Low Risk (08/03/2023) Overall Financial Resource Strain (CARDIA) Difficulty of Paying Living Expenses: Not hard at all Food Insecurity: No Food Insecurity (08/03/2023) Hunger Vital Sign Worried About Running Out of Food in the Last Year: Never true Ran Out of Food in the Last Year: Never true Transportation Needs: No Transportation Needs (08/03/2023) PRAPARE - Transportation Lack of Transportation (Medical): No Lack of Transportation (Non-Medical): No Physical Activity: Inactive (08/03/2023) Exercise Vital Sign Days of Exercise per Week: 7 days Minutes of Exercise per Session: 0 min Housing Stability: Low Risk (08/03/2023) Housing Stability Vital Sign Unable to Pay for Housing in the Last Year: No Number of Places Lived in the Last Year: 1 Unstable Housing in the Last Year: No Past Surgical History: Procedure Laterality Date APPENDECTOMY CATARACT EXTRACTION Left 01/06/2023 CATARACT EXTRACTION Right 01/18/2023 DILATION AND CURETTAGE OF UTERUS KNEE ARTHROSCOPY Bilateral Past Surgical History: Procedure Laterality Date APPENDECTOMY CATARACT EXTRACTION Left 01/06/2023 CATARACT EXTRACTION Right 01/18/2023 DILATION AND CURETTAGE OF UTERUS KNEE ARTHROSCOPY Bilateral Family History Problem Relation Name Age of Onset Diabetes Mother Mom Cancer Mother Mom Cancer Father Dad Hearing loss Father Dad Hypertension Father Dad Breast cancer Sister one sister High Blood Pressure Brother 2 No Known Problems Maternal Grandmother Diabetes Maternal Grandfather Grandpa No Known Problems Paternal Grandmother No Known Problems Paternal Grandfather Objective BP (!) 155/80 Pulse 62 Ht 5' 4 (1.626 m) Wt 156 lb (70.8 kg) SpO2 95% BMI 26.78 kg/m Physical Exam Vitals and nursing note reviewed. Constitutional: General: She is not in acute distress. Appearance: Normal appearance. HENT: Head: Normocephalic. Right Ear: Tympanic membrane, ear canal and external ear normal. Left Ear: Tympanic membrane, ear canal and external ear normal. Mouth/Throat: Mouth: Mucous membranes are moist. Pharynx: Oropharynx is clear. Eyes: Extraocular Movements: Extraocular movements intact. Pupils: Pupils are equal, round, and reactive to light. Neck: Thyroid: No thyromegaly. Vascular: No carotid bruit. Cardiovascular: Rate and Rhythm: Normal rate and regular rhythm. Heart sounds: Normal heart sounds. No murmur heard. Pulmonary: Effort: Pulmonary effort is normal. Breath sounds: Normal breath sounds. Abdominal: General: Bowel sounds are normal. Palpations: Abdomen is soft. Musculoskeletal: General: Normal range of motion. Cervical back: Normal range of motion. Lymphadenopathy: Cervical: No cervical adenopathy. Skin: General: Skin is warm and dry. Neurological: General: No focal deficit present. Mental Status: She is alert and oriented to person, place, and time. Psychiatric: Mood and Affect: Mood normal. Data Reviewed Labs: Imaging/Testing: Meme Rocha MD 08/04/2023 7:27 AM documented in this encounter [facility] 02-25-2023 Telephone encounter Note Form atting of this note might be different from the original. Fax completed. [facility] 02-25-2023 Miscellaneous Notes Formattin g of this note might be different from the original. Fax completed. Order faxed. Name of caller: Jason Contact phone number: [phone] Relationship to Patient: patient Provider: Josefina Practice: [facility] Chief Complaint/Reason for Call: Patient is requesting orders for bone density test be faxed to [facility] . . . Hospital is waiting for orders so she can be scheduled. Please advise. Best time of day caller can be reached: any Patient advised that office/PCP has 24-48 business hours to return their call: No documented in this encounter [facility] 02-25-2023 Telephone encounter Note Form atting of this note might be different from the original. Order faxed. [facility] 02-25-2023 Telephone encounter Note Form atting of this note might be different from the original. Name of caller: Jason Contact phone number: [phone] Relationship to Patient: patient Provider: Josefina Practice: [facility] Chief Complaint/Reason for Call: Patient is requesting orders for bone density test be faxed to [facility] . . . Hospital is waiting for orders so she can be scheduled. Please advise. Best time of day caller can be reached: any Patient advised that office/PCP has 24-48 business hours to return their call: No [facility] 02-25-2023 Telephone encounter Note Form atting of this note might be different from the original. Okay, thank you [facility] 02-25-2023 Miscellaneous Notes Formattin g of this note might be different from the original. Okay, thank you We have this in her chart scanned in. Name of caller: jason Contact phone number: [phone] Relationship to Patient: patient Provider: Dr. Rocha Practice: [facility] Chief Complaint/Reason for Call: pt. Called in to report that [facility] their number is [phone] Best time of day caller can be reached: AM Patient advised that office/PCP has 24-48 business hours to return their call: Yes documented in this encounter [facility] 02-25-2023 Telephone encounter Note Form atting of this note might be different from the original. We have this in her chart scanned in. [facility] 02-25-2023 Telephone encounter Note Form atting of this note might be different from the original. Name of caller: jason Contact phone number: [phone] Relationship to Patient: patient Provider: Dr. Rocha Practice: [facility] Chief Complaint/Reason for Call: pt. Called in to report that had mammogram done back [facility], their number is [phone] Best time of day caller can be reached: AM Patient advised that office/PCP has 24-48 business hours to return their call: Yes [facility] 01-27-2023 Evaluation + Plan note Associ ated Problem(s): Menopause We will order a DEXA scan to evaluate for osteoporosis. [facility] 01-27-2023 Evaluation + Plan note Associ ated Problem(s): Hyperlipidemia Controlled, continue rosuvastatin 5 mg daily [facility] 01-27-2023 Miscellaneous Notes Associate d Problem(s): Menopause We will order a DEXA scan to evaluate for osteoporosis. Associated Problem(s): Hyperlipidemia Controlled, continue rosuvastatin 5 mg daily Associated Problem(s): GERD (gastroesophageal reflux disease) Stable, continue famotidine 40 mg daily and pantoprazole 40 mg daily Addended by: MEME ROCHA on: 01/28/2023 10:32 AM Modules accepted: Level of Service documented in this encounter [facility] 01-27-2023 Evaluation + Plan note Associ ated Problem(s): GERD (gastroesophageal reflux disease) Stable, continue famotidine 40 mg daily and pantoprazole 40 mg daily [facility] 01-27-2023 History of Presen t illness Narrative Health Maintenance/pend orders Allergies Meds-pharmacy Medical hx Surgical hx Family hx Tobacco use E-Cigarette/vaping use Alcohol use Drug use Sexual activity PHQ2/9 Social Determinants Pend any medication refills needed-she doesn't know if she needs any, will check bottles prior to appt All of the above have been reviewed/completed Patient verified by last name and date of . Images from the original note were not included. 01/27/2023 Jason Chan (: 1950) is a 72 y.o. female , Established patient, here for evaluation of the following chief complaint(s): Hyperlipidemia, 6 Month Follow-up (Medicine Check), Health Maintenance (DM screening-agrees/Covid #4-declines/Mammogram-states she had this done 09/01/22 at [facility]), and GERD ASSESSMENT/PLAN: 1. Gastroesophageal reflux disease without esophagitis Assessment & Plan: Stable, continue famotidine 40 mg daily and pantoprazole 40 mg daily 2. Mixed hyperlipidemia Assessment & Plan: Controlled, continue rosuvastatin 5 mg daily 3. Menopause Assessment & Plan: We will order a DEXA scan to evaluate for osteoporosis. Orders: - DEXA bone density axial skeleton Follow up in about 6 months (around 07/30/2023) for AWV. SUBJECTIVE/OBJECTIVE: NEERAJ Fabricio comes in today for 6-month follow-up on her GERD, hyperlipidemia and she says she really has no complaints but she is agreeable to being scheduled for a bone density test. Review of Systems Constitutional: Negative for chills and fever. Respiratory: Negative for shortness of breath. Cardiovascular: Negative for chest pain and palpitations. Gastrointestinal: Negative for abdominal pain, blood in stool, constipation and diarrhea. Genitourinary: Negative for dyspareunia, dysuria, frequency, hematuria and urgency. Neurological: Negative for weakness and numbness. Psychiatric/Behavioral: Negative for dysphoric mood. The patient is not nervous/anxious. Vitals: 01/27/23 0730 BP: 115/72 Pulse: 54 SpO2: 96% Weight: 154 lb 12.8 oz (70.2 kg) Height: 5' 4 (1.626 m) Physical Exam Vitals and nursing note reviewed. Constitutional: General: She is not in acute distress. Appearance: Normal appearance. HENT: Head: Normocephalic. Right Ear: Tympanic membrane, ear canal and external ear normal. Left Ear: Tympanic membrane, ear canal and external ear normal. Mouth/Throat: Mouth: Mucous membranes are moist. Pharynx: Oropharynx is clear. Eyes: Extraocular Movements: Extraocular movements intact. Pupils: Pupils are equal, round, and reactive to light. Neck: Vascular: No carotid bruit. Cardiovascular: Rate and Rhythm: Normal rate and regular rhythm. Heart sounds: Normal heart sounds. No murmur heard. Pulmonary: Effort: Pulmonary effort is normal. Breath sounds: Normal breath sounds. Abdominal: General: Bowel sounds are normal. Palpations: Abdomen is soft. Musculoskeletal: General: Normal range of motion. Cervical back: Normal range of motion. Lymphadenopathy: Cervical: No cervical adenopathy. Skin: General: Skin is warm and dry. Neurological: General: No focal deficit present. Mental Status: She is alert and oriented to person, place, and time. Psychiatric: Mood and Affect: Mood normal. An electronic signature was used to authenticate this note. Meme Rocha MD 01/28/2023 10:31 AM documented in this encounter [facility] 01-27-2023 Note Addended by: MEME ROCHA on: 01/28/2023 10:32 AM Modules accepted: Level of Service [facility] 12-25-2022 History of Presen t illness Narrative Images from the original note were not included. 12/25/2022 Jason Chan (: 1950) is a 72 y.o. female , Established patient, here for evaluation of the following chief complaint(s): Back Pain (low) ASSESSMENT/PLAN: 1. Acute right-sided low back pain without sciatica - naproxen (Naprosyn) 375 MG tablet; Take 1 tablet (375 mg) by mouth in the morning and 1 tablet (375 mg) in the evening. Take with meals., Starting Wed12/25/2022, Normal - tiZANidine (Zanaflex) 2 MG tablet; Take 1 tablet (2 mg) by mouth every 8 hours as needed for muscle spasms for up to 10 days., Starting Wed12/25/2022, Until 01/04/2023 at 2359, Normal - Will have her take Naproxen on a schedule and a low dose of a muscle relaxer as needed. - Home exercises provided. - Discussed signs and symptoms warranting immediate attention- verbalized understanding. - Will have her do a close follow up in 1 week- discussed potential need for imaging if symptoms persist/fail to improve. Follow up in about 1 week (around 01/01/2023) for follow up on low back pain. SUBJECTIVE/OBJECTIVE: NEERAJ Gomez presents today with concerns of low back pain that started Wednesday after being intimate with her . States she has had low back pain off and on for several years but it usually does not last this long or feels as severe. Denies pain radiating down either leg. Points to her right lower side when describing the location of her pain. Has applied asper cream and applied heat and ice with minimal improvement. Has also taken Aleve and Advil with not much improvement. Denies loss of bowel or bladder function. Denies known history of back injuries or surgeries. Rates her current level of pain at a 3/10, but it can get up to a 10/10 when making certain position changes. States her back feels tight- struggled to bend over to put her shoes and socks on for her appointment. Review of Systems Respiratory: Negative for shortness of breath. Cardiovascular: Negative for chest pain. Musculoskeletal: Positive for back pain. Vitals: 12/25/22 1457 BP: 118/70 BP Location: Right arm Patient Position: Sitting BP Cuff Size: Large adult Pulse: 64 Temp: 36.9 C (98.4 F) TempSrc: Temporal SpO2: 98% Weight: 158 lb (71.7 kg) Height: 5' 4 (1.626 m) Physical Exam Constitutional: General: She is not in acute distress. Appearance: She is not ill-appearing or diaphoretic. Cardiovascular: Rate and Rhythm: Normal rate and regular rhythm. Pulses: Normal pulses. Heart sounds: Normal heart sounds. No murmur heard. No friction rub. Pulmonary: Effort: Pulmonary effort is normal. Breath sounds: Normal breath sounds. No wheezing, rhonchi or rales. Musculoskeletal: Lumbar back: Spasms and tenderness present. No swelling, edema or deformity. Decreased range of motion. Negative right straight leg raise test and negative left straight leg raise test. Right lower leg: No edema. Left lower leg: No edema. Legs: Comments: Slow to rise up out of chair. Gait stable. Skin: General: Skin is warm and dry. Coloration: Skin is not pale. Findings: No erythema. Neurological: Mental Status: She is alert and oriented to person, place, and time. Deep Tendon Reflexes: Reflex Scores: Patellar reflexes are 2+ on the right side and 2+ on the left side. Psychiatric: Behavior: Behavior normal. Thought Content: Thought content normal. Judgment: Judgment normal. An electronic signature was used to authenticate this note. CHESTER Edwards CNP 12/25/2022 3:34 PM documented in this encounter [facility] 10-21-2022 Telephone encounter Note Form atting of this note might be different from the original. Rx sent. Follow up as scheduled. [facility] 10-21-2022 Miscellaneous Notes Formattin g of this note might be different from the original. Rx sent. Follow up as scheduled. Prescription Request: Last medication check: 01/21/22 Last physical exam: 07/29/22 Next scheduled appointment: 01/27/23 Last date of refill on this medication 01/21/22 90 days 1 refill documented in this encounter [facility] 10-21-2022 Telephone encounter Note Form atting of this note might be different from the original. Prescription Request: Last medication check: 01/21/22 Last physical exam: 07/29/22 Next scheduled appointment: 01/27/23 Last date of refill on this medication 01/21/22 90 days 1 refill [facility] Diagnosis Gastroesophageal reflux disease without esophagitis- Primary Esophageal reflux Mixed hyperlipidemia Menopause Symptomatic menopausal or female climacteric states documented [facility] Diagnosis Medicare annual wellness visit, subsequent- Primary Gastroesophageal reflux disease without esophagitis Esophageal reflux Mixed hyperlipidemia Primary osteoarthritis of left knee Elevated BP without diagnosis of hypertension Screening for diabetes mellitus Encounter for screening mammogram for malignant neoplasm of breast [facility] Attachments The following attachments cannot be sent through Care Everywhere. * Back Exercises (Azeri) [facility] Family History No Family History Records Found Advance Directives No Advanced Directives Records Found Additional Source Comments Reason for Visit (unrecogniz ed section and content) Reason Comments Back Pain low Reason Comments Hyperlipidemia 6 Month Follow-up Medicine Check Health Maintenance DM screening-agreesC ovid #[id number] she had this done 09/01/22 at [facility] GERD Reason Onset Date Comments OTHER 02/25/2023 Reason Onset Date Comments Needs orders faxed 02/25/2023 Needs orders faxed to [facility] Reason Comments Medicare Annual Wellness Visit Subsequen t Blood Work Health Maintenance Hep c screening- ref usedRsv vaccine- not done Reason Onset Date Comments Orders 08/17/2023 Care Teams (unrecognized sec tion and content) [employer] Relationship Specialty Start Date [place] [id number] PCP - General 12/28/14 [employer] Relationship Specialty Start Date End Date Meme Rocha MD [address] [place] [id number] PCP - General 12/28/14 [employer] Relationship Specialty Start Date End Date Meme Rocha MD [address] [place] [id number] PCP - General 12/28/14 [employer] Driver Relationship Specialty Start Date End Date Meme Rocha MD [address] [place] [id number] PCP - General 12/28/14 [employer] Driver Relationship Specialty Start Date End Date Meme Rocha MD [address] [place] [id number] PCP - General 12/28/14 [employer] Driver Relationship Specialty Start Date End Date Meme Rocha MD [address] [place] [address] [place] [id number] PCP - General 12/28/14 INFORMATION SOURCE (unrecogn ized section and content) FOR RECORDS PERTAINING TO PATIENTS WHO ARE OR HAVE BEEN ENROLLED IN A CHEMICAL DEPENDENCY/SUBSTANCEABUSE PROGRAM, SOME INFORMATION MAY BE OMITTED. This clinical summary was aggregated from multiple sources. Caution should be exercised in using it in the provision of clinical care. This summary normalizes information from multiple sources, and as a consequence, information in this document may materially change the coding, format and clinical context of patient data. In addition, data may be omitted in some cases. CLINICAL DECISIONS SHOULD BE BASED ON THE PRIMARY CLINICAL RECORDS. [facility]. provides no warranty or guarantee of the accuracy or completeness of information in this document.
== END | disposition home or self-care (01) ==
LOC: OPBI 07:01
PROVIDERS: PCP Family Medicine; Referring Provider Family Medicine; Visit Provider Family Medicine
DX: Z12.31 Encounter for screening mammogram for malignant neoplasm of breast (principal); Z80.3 Family history of malignant neoplasm of breast
CPT/HCPCS: 77063; 77067

== ENCOUNTER → 2024-09-04 | Outpatient (CLI) | payer MEDICARE, OTHER, SELFPAY ==
--- NOTE | 2024-09-04 09:58 | BI_ITS ---
PROCEDURE: SCRN MAMM (CAD)W/CARLI BILAT REASON FOR EXAM: F, Age 74 y/o, sister with breast cancer. Routine annual follow-up. TECHNIQUE: Bilateral screening digital breast tomosynthesis with 2D and 3D images. Computer aided detection. COMPARISON: Prior exam(s) dating back to 03/24/2024.. FINDINGS: There are scattered areas of fibroglandular density. Stable examination. No suspicious masses, areas of developing architectural distortion, or suspicious calcifications. BI/SCRN MAMM (CAD)W/CARLI BILAT IMPRESSION: BI-RADS 2: BENIGN. RECOMMEND ANNUAL MAMMOGRAPHIC SCREENING. Follow-up code: Routine Follow-up The patient will be notified of the results by letter. Reading Location: [id number]
== END | disposition home or self-care (01) ==
LOC: OPBI 09:56
PROVIDERS: PCP Family Medicine; Referring Provider Family Medicine; Visit Provider Family Medicine
DX: Z12.31 Encounter for screening mammogram for malignant neoplasm of breast (principal)
CPT/HCPCS: 77063; 77067